=== PATIENT | male | born 1965 | race African-American/Black ===

== ENCOUNTER 2016-12-05 18:08 | Emergency (ER) | payer BC ==
--- NOTE | 2016-12-05 18:12 | ED.ADGEN ---
Past History Past Medical History: Migraines Adult General Chief Complaint Chief Complaint "I ve had this headache all day.. mainly in my Lt side of face.. and head. .." HPI HPI Patient is a 51 year old male who presents with above hx and complaints of headache, left facial and left side of head. No history of trauma. No history of travel. No history of fever or chills. Has a lot of nasal congestion. Patient denies any history of immunosuppression. Patient denies any history cancer. Pt. follows with Dr. Cornejo. Review of Systems Review of Systems Constitutional: Denies fever or chills [] Eyes: Denies change in visual acuity, redness, or eye pain [] HENT: Complaints of nasal congestion. Denies sore throat [] Respiratory: Denies cough or shortness of breath [] Cardiovascular: No additional information not addressed in HPI [] GI: Denies abdominal pain, nausea, vomiting, bloody stools or diarrhea [] : Denies dysuria or hematuria [] Musculoskeletal: Denies back pain or joint pain [] Integument: Denies rash or skin lesions [] Neurologic: Complaints of left-sided headache. Denies focal weakness or sensory changes [] Endocrine: Denies polyuria or polydipsia [] Family History Family History Noncontributory Current Medications Current Medications Current Medications Medications (Trade) Dose Ordered Sig/Noe Start Time Stop Time Status Last Admin Dose Admin Ceftriaxone Sodium 1 gm/ Sodium Chloride 50 ml @ 100 mls/hr 1X ONCE 12/05/16 19:30 12/05/16 19:59 DC 12/05/16 19:59 100 MLS/HR Ceftriaxone Sodium (Rocephin) 1 gm STK-MED ONCE 12/05/16 19:53 12/05/16 19:54 DC Clonidine HCl (Catapres Tts-2) 1 patch 1X ONCE 12/05/16 20:45 12/05/16 20:46 DC 12/05/16 20:36 1 PATCH Clonidine HCl (Catapres) 0.2 mg 1X ONCE 12/05/16 21:15 12/05/16 21:42 DC 12/05/16 21:14 0.2 MG Diphenhydramine HCl (Benadryl) 50 mg 1X ONCE 12/05/16 19:00 12/05/16 19:01 DC 12/05/16 19:10 50 MG Ketorolac Tromethamine (Toradol) 30 mg 1X ONCE 12/05/16 19:45 12/05/16 19:46 DC 12/05/16 20:00 30 MG Labetalol HCl (Normodyne) 10 mg 1X ONCE 12/05/16 21:15 12/05/16 21:42 DC 12/05/16 21:15 10 MG Lactated Ringer's 1,000 ml @ 1,000 mls/hr Q1H 12/05/16 18:30 12/05/16 19:10 DC 12/05/16 19:08 1,000 MLS/HR Lidocaine HCl 20 ml 1X ONCE 12/05/16 18:30 12/05/16 18:50 DC 12/05/16 18:30 20 ML Promethazine HCl (Phenergan Im) 50 mg 1X ONCE 12/05/16 19:00 12/05/16 19:01 DC 12/05/16 19:09 50 MG Sodium Chloride 50 ml @ As Directed STK-MED ONCE 12/05/16 19:53 12/05/16 19:54 DC Sumatriptan Succinate (Imitrex) 6 mg 1X ONCE 12/05/16 19:00 12/05/16 19:01 DC 12/05/16 19:10 6 MG See nursing for home meds Allergies Allergies Allergies Coded Allergies Type Severity Reaction Last Updated Verified No Known Drug Allergies 12/05/16 No Physical Exam Physical Exam Constitutional: Well developed, well nourished, mild to moderate distress, non- toxic appearance. [] HENT: Normocephalic, atraumatic, bilateral external ears normal, bilateral ear canals plugged with hard wax, oropharynx moist, no oral exudates, nose rhinorrhea. No temporal artery tenderness. BC>Air conduction bilateral. Eyes: PERRLA, EOMI, conjunctiva normal, no discharge. [] Neck: Normal range of motion, no tenderness, supple, no stridor. [] Cardiovascular:Heart rate regular rhythm, no murmur [] Lungs & Thorax: Bilateral breath sounds equal at apexes auscultation [] Abdomen: Bowel sounds normal, soft, no tenderness, no masses, no pulsatile masses. [] Skin: Warm, dry, no erythema, no rash. [] Back: No tenderness, no CVA tenderness. [] Extremities: No tenderness, no cyanosis, no clubbing, ROM intact, no edema. DTRs are +2 patella and brachial. No drift. Music Critic equal. Distal vibratory intact. Neurologic: Alert and oriented X 3, normal motor function, normal sensory function, no focal deficits noted. [] Psychologic: Affect normal, judgement normal, mood normal. [] Current Patient Data Vital Signs Vital Signs Date Time Temp Pulse Resp B/P (MAP) Pulse Ox O2 Delivery O2 Flow Rate FiO2 12/05/16 21:53 74 18 126/79 (95) 100 Room Air 12/05/16 18:08 97.9 Lab Results Laboratory Tests Test 12/05/16 18:41 White Blood Count 10.3 x10^3/uL (4.0-11.0) Red Blood Count 5.14 x10^6/uL (4.30-5.70) Hemoglobin 15.6 g/dL (13.0-17.5) Hematocrit 46.1 % (39.0-53.0) Mean Corpuscular Volume 90 fL (79-100) Mean Corpuscular Hemoglobin 30 pg (25-35) Mean Corpuscular Hemoglobin Concent 34 g/dL (31-37) Red Cell Distribution Width 15.0 % (11.5-14.5) H Platelet Count 184 x10^3/uL (140-400) Neutrophils (%) (Auto) 57 % (31-73) Lymphocytes (%) (Auto) 32 % (24-48) Monocytes (%) (Auto) 7 % (0-9) Eosinophils (%) (Auto) 3 % (0-3) Basophils (%) (Auto) 1 % (0-3) Neutrophils # (Auto) 5.8 x10^3uL (1.8-7.7) Lymphocytes # (Auto) 3.3 x10^3/uL (1.0-4.8) Monocytes # (Auto) 0.7 x10^3/uL (0.0-1.1) Eosinophils # (Auto) 0.3 x10^3/uL (0.0-0.7) Basophils # (Auto) 0.1 x10^3/uL (0.0-0.2) Erythrocyte Sedimentation Rate 17 (0-15) H Prothrombin Time 10.7 SEC (9.4-11.4) Prothrombin Time INR 1.0 (0.9-1.1) PTT 28 SEC (23-33) Sodium Level 142 mmol/L (136-145) Potassium Level 4.0 mmol/L (3.5-5.1) Chloride Level 106 mmol/L (98-107) Carbon Dioxide Level 27 mmol/L (21-32) Anion Gap 9 (6-14) Blood Urea Nitrogen 15 mg/dL (8-26) Creatinine 1.0 mg/dL (0.7-1.3) Estimated GFR (Cockcroft-Gault) 95.3 Glucose Level 102 mg/dL (70-99) H Calcium Level 9.3 mg/dL (8.5-10.1) Magnesium Level 2.0 mg/dL (1.8-2.4) Total Bilirubin 0.4 mg/dL (0.2-1.0) Direct Bilirubin 0.1 mg/dL (0.0-0.2) Aspartate Amino Transferase (AST) 11 U/L (15-37) L Alanine Aminotransferase (ALT) 17 U/L (16-63) Alkaline Phosphatase 72 U/L (46-116) C-Reactive Protein 4.0 mg/L (0-3.3) H Total Protein 7.9 g/dL (6.4-8.2) Albumin 3.7 g/dL (3.4-5.0) Ethyl Alcohol Level < 10 mg/dL (0-10) EKG EKG [] Radiology/Procedures Radiology/Procedures CT of head shows no shift, mass, edema, bleed, or fracture. Does have findings of sinusitis.[] Course & Med Decision Making Course & Med Decision Making Pertinent Labs and Imaging studies reviewed. (See chart for details). Patient did have some relief to the nasal lidocaine by applicator. Patient declines spinal tap at this time. Exhibits UCAR capacity. Patient take Keflex 500 mg 3 times a day. Patient to take Zofran as needed for nausea. For marked pain may take Vicoprofen up to 3 times a day. Must follow-up . Benadryl may be helpful for nasal congestion. Wear clonidine patch until follow-up. Return if any concerns. Patient used Flonase 2 sprays at night. Patient use normal saline irrigations or saline mist treatments at least 4 times a day. Patient apply Debrox or sweet oil to both ears 4 times a day until wax softer and attempt removal only after it has been soften. [] Final Impression Final Impression 1. Headache-migraine 2. Cluster headache[]? 3. Hypertension 4. Sinusitis 5. Earwax- bilateral canals are obstructed Problems: Dragon Disclaimer Dragon Disclaimer This electronic medical record was generated, in whole or in part, using a voice recognition dictation system. JUAN LAFLEUR MD Dec 05, 2016 18:12
[2016-12-05] MEDS ORDERED: IV RINGERS SOLUTION,LACTATED 1,000 ML IV SCH (18:30)
[2016-12-05] MEDS ORDERED: LIDOCAINE 2% 20 ML VIAL. IJ ONE (18:30)
[2016-12-05 18:58] LABS: BASO # 0.1 x10^3/uL (0.0-0.2); BASO % 1 % (0-3); EOS # 0.3 x10^3/uL (0.0-0.7); EOS % 3 % (0-3); HEMATOCRIT 46.1 % (39.0-53.0); HEMOGLOBIN 15.6 g/dL (13.0-17.5); LYMPH # 3.3 x10^3/uL (1.0-4.8); LYMPH % 32 % (24-48); MEAN CORPUSCULAR HEMOGLOBIN 30 pg (25-35); MEAN CORPUSCULAR HGB CONC 34 g/dL (31-37); MEAN CORPUSCULAR VOLUME 90 fL (79-100); MONO # 0.7 x10^3/uL (0.0-1.1); MONO % 7 % (0-9); NEUT # 5.8 x10^3uL (1.8-7.7); NEUT % 57 % (31-73); PLATELET COUNT 184 x10^3/uL (140-400); RED BLOOD COUNT 5.14 x10^6/uL (4.30-5.70); WHITE BLOOD COUNT 10.3 x10^3/uL (4.0-11.0)
[2016-12-05] MEDS ORDERED: SUMAtriptan. 6 MG/0.5 ML VIAL SQ ONE (19:00)
[2016-12-05] MEDS ORDERED: diphenhydrAMINE 50 MG/ML VIAL IVP ONE (19:00)
[2016-12-05] MEDS ORDERED: PROMETHAZINE IM 25 MG/ML VIAL IM ONE (19:00)
[2016-12-05 19:13] LABS: ALBUMIN 3.7 g/dL (3.4-5.0); CALCIUM 9.3 mg/dL (8.5-10.1); DIRECT BILIRUBIN 0.1 mg/dL (0.0-0.2); GFR 95.3; TOTAL BILIRUBIN 0.4 mg/dL (0.2-1.0); TOTAL PROTEIN 7.9 g/dL (6.4-8.2)
--- NOTE | 2016-12-05 19:15 | RAD ---
CT scan of the head without contrast Clinical History: Headaches. Technique: Unenhanced, contiguous, 5 mm axial sections were obtained through the head. One or more of the following individualized dose reduction techniques were utilized for this study: 1. Automated exposure control. 2. Adjustment of the mA and/or kV according to patient size. 3. Use of iterative reconstruction technique. Findings: The ventricles and sulci are within normal limits in size and configuration. No focal area of abnormal attenuation is seen involving the brain parenchyma. No extra-axial fluid collection is seen. No skull fracture is seen. Impression: Negative study. CT scan of paranasal sinuses without contrast 12/05/2016 CLINICAL HISTORY: Left facial and sinus pressure. Headaches. TECHNIQUE: Unenhanced, contiguous, 0.625 mm axial sections were obtained through the paranasal sinuses. 3 mm reconstructed sagittal, axial and coronal images were obtained. One or more of the following individualized dose reduction techniques were utilized for this study: 1. Automated exposure control. 2. Adjustment of the mA and/or kV according to patient size. 3. Use of iterative reconstruction technique. FINDINGS: Mild mucosal thickening is seen involving the medial aspects of both maxillary sinuses, inferior aspect left maxillary sinus and scattered throughout the ethmoid air cells bilaterally. The frontal sinuses and sphenoid sinus are clear. No air-fluid level is seen. The ostiomeatal units are patent bilaterally. There is a small right morris bullosa. IMPRESSION: Mild mucosal thickening is seen scattered throughout the paranasal sinuses as outlined above. No air-fluid level is seen. Electronically signed by: Jordi Zazueta MD (12/05/2016 7:12 PM) [facility]
[2016-12-05] MEDS ORDERED: FLUT9.9S NS (19:30)
[2016-12-05] MEDS ORDERED: ONDA8TAB12 PO (19:30)
[2016-12-05] MEDS ORDERED: HYDR-79 PO (19:30)
[2016-12-05] MEDS ORDERED: KETOROLAC 30 MG/ML VIAL. IV ONE (19:45)
[2016-12-05] MEDS ORDERED: IV NORMAL SALINE 50ML 50 ML ONE (19:53)
[2016-12-05] MEDS ORDERED: cefTRIAXone SODIUM 1 GM VIAL IV ONE (19:53)
[2016-12-05] MEDS ORDERED: LABETALOL 20 MG/4 ML DISP.SYRIN. IVP ONE ×2 (20:45→21:15)
[2016-12-05] MEDS ORDERED: cloNIDine TTS-2 1 PATCH PATCH TD ONE (20:45)
[2016-12-05 21:09] LABS: SEDIMENTATION RATE 17 (0-15)
[2016-12-05] MEDS ORDERED: cloNIDine HCL 0.1 MG TABLET PO ONE (21:15)
[2016-12-05 21:53] VITALS: BP 126/79
== END 2016-12-05 22:00 | disposition home or self-care (01) ==
LOC: ER 18:08
DX: G43.909 Migraine, unspecified, not intractable, without status migrainosus (principal); I10 Essential (primary) hypertension; J32.9 Chronic sinusitis, unspecified; H61.23 Impacted cerumen, bilateral
CPT/HCPCS: 36415; 70450; 70486; 80048; 80076; 83735; 85025; 85610; 85651; 85730; 86140; 96365; 96372; 96375; 96376; 99285; G0480; J0696; J1200; J1885; J2550; J3030; J3490; J7120; J2001